=== PATIENT | female | born 1945 | race Caucasian/White ===

== ENCOUNTER → 2017-02-22 | Outpatient (CLI) | payer MEDICARE, BC ==
[~2017-02-22] VITALS: Ht 154.9 cm; Wt 54.7 kg
[~2017-02-22] MED LIST: ADVIL200 MG PO; ANORO IH; B-12 500 MCG PO; CALCIUM 600MG+D1 TAB PO; CALCIUM1 CAP PO; CIPRO 500MG TA500 MG PO; CORGARD 40M40 MG/TAB PO; CORGARD40 MG PO; CYCLOBENZAPRINE10 MG PO; ELITE MAGNESIUM1 TAB PO; ESTRACE0.5 MG PO; ETODOLAC400 MG PO; FLEXERIL 1010 MG/TAB PO; GLUCOSAMINE & C1 CA1 PO; HYZAAR 50-12.1 UDTAB PO; LISINOPRIL PO; LODINE400 MG PO; MAGNESIUM CHELA27 MG PO; MOTRIN 800800 MG/TAB PO; NATURAL POTASS595 MG PO; NIACIN PO; NORFLEX 10100 MG/TAB PO; POTASSIMIN75 MG PO; PREMARIN 0.60.625 MG PO; PRILOSEC; SAM-E200 MG PO; SONATA 10MG10 MG PO; TIZANIDINE PO; VICODIN 5/5001 UDTAB PO; VITAMIN B1250 MCG PO; VITAMIN C500 MG PO; VITAMIN E100 I3 PO; VITAMINE200 PO; ZANAFLEX 4MG TAB4 MG PO
[2017-02-22 12:45] VITALS: BP 136/56; PULSE 58
[2017-02-22 13:35] VITALS: BP 158/75; PULSE 65
[2017-02-22 14:00] VITALS: BP 148/76; PULSE 60
== END ==
LOC: COL.RAD 12:00
DX: D34 Benign neoplasm of thyroid gland (principal)
CPT/HCPCS: 13756

== ENCOUNTER → 2017-11-10 | Outpatient (CLI) | payer MEDICARE, BC | LOC: MC.RAD 09:40 | DX: Z12.31 Encounter for screening mammogram for malignant neoplasm of breast (principal) ==

== ENCOUNTER 2018-03-28 23:20 | Observation (INO) | payer MEDICARE, BC ==
[~2018-03-28] VITALS: Ht 152.4 cm; Wt 59.8 kg
[2018-03-28 23:33] LABS: HEMOGLOBIN 10.4 g/dl (12.5-16.0); MEAN CELL VOLUME 89 fl (80.0-100.0); MEAN CORPUSCULAR HEMOGLOBIN 29 pg (27.0-31.0); MEAN CORPUSCULAR HGB CONC 33 g/dl (33.0-37.0); MEAN PLATELET VOLUME 8.7 fl (7.4-10.4); PLATELET COUNT 194 K/mm3 (130-400); RED BLOOD COUNT 3.56 M/mm3 (4.10-5.30); REDCELL DISTRIBUTION WIDTH-CV 13.2 % (11.5-14.5)
[2018-03-28 23:39] LABS: HEMATOCRIT 31.7 % (37.0-47.0)
[2018-03-28 23:50] LABS: ALANINE AMINOTRANSFERASE 47 U/L (9-52); ALBUMIN 2.7 gm/dL (3.5-5.0); ALKALINE PHOSPHATASE 104 U/L (50-136); ANION GAP 7 mmol/L (7-16); AST,SGOT 32 U/L (15-37); BILIRUBIN,TOTAL 0.6 mg/dL (0.0-1.0); BLOOD UREA NITROGEN 20 mg/dL (7-17); CALCIUM 8.1 mg/dL (8.4-10.2); CARBON DIOXIDE 31 mmol/L (22-30); CHLORIDE 97 mmol/L (98-107); CREATINE KINASE 34 U/L (30-135); CREATININE, serum 1.21 mg/dL (0.52-1.25); GLUCOSE 147 mg/dL (74-106); LIPASE 27 U/L (23-300); POTASSIUM 3.2 mmol/L (3.4-5.0); SODIUM 135 mmol/L (137-145); TOTAL PROTEIN 5.8 gm/dL (6.4-8.2)
[2018-03-28 23:52] LABS: INR 1.3 (0.8-3.0); PROTHROMBIN TIME 14.3 SECONDS (9.7-12.8)
[2018-03-28 23:59] LABS: TROPONIN-I < 0.012 ng/mL (0.000-0.034)
[2018-03-29] VITALS (422 sets, daily range): BP systolic 105–147; BP diastolic 55–97; PULSE 64–99; TEMP 97.4–99.4; O2SAT 90–100
[2018-03-29] LABS: BAND 13 % (0-10); LYMPHOCYTE 11 % (20.0-51.0); NEUTROPHILS 61 % (42.0-75.2)
[2018-03-29 00:01] LABS: PLATELET ESTIMATE NORMAL (NORMAL)
[2018-03-29 00:01] LABS: C-REACTIVE PROTEIN 19.3 mg/dL (0.0-0.9)
[2018-03-29 00:04] LABS: COLLECTION METHOD CATHETER
[2018-03-29 00:12] LABS: HYALINE CAST >12 /lpf; MUCOUS Present /lpf; PH 5 (5-8); SQUAMOUS EPITHELIAL 0-2 /hpf; URINE APPEARANCE Cloudy; URINE BACTERIA Moderate /hpf; URINE BILIRUBIN Positive (NEGATIVE); URINE BLOOD Negative (NEGATIVE); URINE COLOR Yellow; URINE GLUCOSE Negative (NEGATIVE); URINE KETONE Negative (NEGATIVE); URINE LEUKOCYTE ESTERASE Trace (NEGATIVE); URINE NITRATE Negative (NEGATIVE); URINE PROTEIN(semi-quant) 1+ (NEGATIVE); URINE RBC 0-2 /hpf; URINE UROBILINOGEN >=4.0 mg/dL (NEGATIVE)
[2018-03-29 06:01] LABS: HEMOGLOBIN 10.2 g/dl (12.5-16.0); MEAN CELL VOLUME 90 fl (80.0-100.0); MEAN CORPUSCULAR HEMOGLOBIN 29 pg (27.0-31.0); MEAN CORPUSCULAR HGB CONC 33 g/dl (33.0-37.0); MEAN PLATELET VOLUME 9.1 fl (7.4-10.4); PLATELET COUNT 197 K/mm3 (130-400); RED BLOOD COUNT 3.47 M/mm3 (4.10-5.30); REDCELL DISTRIBUTION WIDTH-CV 13.5 % (11.5-14.5)
[2018-03-29 06:07] LABS: HEMATOCRIT 31.1 % (37.0-47.0)
[2018-03-29 06:14] LABS: CALCIUM 8.1 mg/dL (8.4-10.2); CREATININE, serum 0.78 mg/dL (0.52-1.25); MAGNESIUM 1.8 mg/dL (1.6-2.3); POTASSIUM 3.2 mmol/L (3.4-5.0)
[2018-03-29 06:35] LABS: BAND 11 % (0-10); BASOPHIL 1 % (0-2); LYMPHOCYTE 9 % (20.0-51.0); NEUTROPHILS 63 % (42.0-75.2); PLATELET ESTIMATE NORMAL (NORMAL)
[2018-03-30 04:01] VITALS: BP 142/72; PULSE 106; TEMP 99.2
[2018-03-30 06:40] LABS: BASO % 0.1 % (0.0-2.0); EOS # 0.1 (0.0-0.7); EOS % 1.5 % (0-4.0); GRAN # 5.7 (1.4-6.5); GRAN % 69.1 % (42.2-75.2); HEMOGLOBIN 10.3 g/dl (12.5-16.0); LYMPH % 11.8 % (20.0-51.0); MEAN CELL VOLUME 88 fl (80.0-100.0); MEAN CORPUSCULAR HEMOGLOBIN 29 pg (27.0-31.0); MEAN CORPUSCULAR HGB CONC 33 g/dl (33.0-37.0); MEAN PLATELET VOLUME 9.2 fl (7.4-10.4); MONO # 1.4 (0.1-0.6); MONO % 17.1 % (1.7-9.3); PLATELET COUNT 245 K/mm3 (130-400); RED BLOOD COUNT 3.53 M/mm3 (4.10-5.30); REDCELL DISTRIBUTION WIDTH-CV 13.5 % (11.5-14.5)
[2018-03-30 06:42] LABS: HEMATOCRIT 31.1 % (37.0-47.0)
[2018-03-30 06:50] LABS: CALCIUM 8.5 mg/dL (8.4-10.2); CREATININE, serum 0.62 mg/dL (0.52-1.25)
[2018-03-30 08:22] VITALS: BP 122/75; PULSE 85; TEMP 98.3
[2018-03-30] MEDS ORDERED: CEFTIN 250250 MG/TAB PO (09:39)
[2018-03-30] MEDS ORDERED: TOPROL XL 50MG50 MG PO (09:41)
[2018-03-30 12:20] VITALS: BP 124/59; PULSE 85; TEMP 98
== END 2018-03-30 14:00 | disposition home or self-care (01) ==
LOC: COL.ER 23:20 → ICU 03-29 01:02 → MEDICAL 03-29 18:30
PROVIDERS: Emergency Medicine; Internal Medicine; Nurse Practitioner
DX: R41.82 Altered mental status, unspecified (principal); N39.0 Urinary tract infection, site not specified; J44.9 Chronic obstructive pulmonary disease, unspecified; I10 Essential (primary) hypertension; R51 Headache; E87.6 Hypokalemia; I35.1 Nonrheumatic aortic (valve) insufficiency; D64.9 Anemia, unspecified; J32.1 Chronic frontal sinusitis; J32.3 Chronic sphenoidal sinusitis; Z79.52 Long term (current) use of systemic steroids; Z90.710 Acquired absence of both cervix and uterus; Z90.49 Acquired absence of other specified parts of digestive tract; Z88.2 Allergy status to sulfonamides; Z80.42 Family history of malignant neoplasm of prostate; Z80.41 Family history of malignant neoplasm of ovary
CPT/HCPCS: G0378; G8978-GP; G8979-GP; G8987-GO; G8988-GO; J0696; J1650; J7030; Q9967

== ENCOUNTER 2018-05-03 09:45 | Outpatient (RCR) | payer MEDICARE, BC ==
[~2018-05-03 09:45] MED LIST changes: +CEFTIN 250250 MG/TAB PO; +TOPROL XL 50MG50 MG PO
== END 2018-05-04 10:51 | disposition home or self-care (01) ==
LOC: MKS.ESL.PT 09:45
DX: M54.2 Cervicalgia (principal)
CPT/HCPCS: G8979-GP; G8980-GP; G8987-GP; G8988-GP

== ENCOUNTER → 2018-11-30 | Outpatient (CLI) | payer MEDICARE, BC | LOC: COL.RAD 07:49 | DX: M16.11 Unilateral primary osteoarthritis, right hip (principal) | CPT/HCPCS: J3301; Q9967 ==

== ENCOUNTER → 2018-12-05 | Outpatient (CLI) | payer MEDICARE, BC | LOC: MC.RAD 10:33 | DX: Z12.31 Encounter for screening mammogram for malignant neoplasm of breast (principal) ==

== ENCOUNTER → 2019-12-12 | Outpatient (CLI) | payer MEDICARE, BC | LOC: MC.RAD 10:30 | DX: Z12.31 Encounter for screening mammogram for malignant neoplasm of breast (principal) ==

== ENCOUNTER → 2020-12-25 | Outpatient (CLI) | payer MEDICARE, BC | LOC: MC.RAD 12-16 10:00 | DX: Z12.31 Encounter for screening mammogram for malignant neoplasm of breast (principal) ==

== ENCOUNTER → 2021-06-10 | Outpatient (CLI) | payer MEDICARE, BC | LOC: COL.RAD 10:12 | DX: N30.21 Other chronic cystitis with hematuria (principal) ==

== ENCOUNTER → 2022-01-01 | Outpatient (CLI) | payer MEDICARE, BC | LOC: MC.RAD 09:26 | DX: Z12.31 Encounter for screening mammogram for malignant neoplasm of breast (principal) ==

== ENCOUNTER → 2022-05-11 | Outpatient (CLI) | payer MEDICARE, BC | LOC: COL.RAD 09:00 | DX: R13.12 Dysphagia, oropharyngeal phase (principal) ==

== ENCOUNTER 2022-05-19 11:15 | Outpatient (RCR) | payer MEDICARE, BC | END 2022-05-21 | disposition home or self-care (01) | LOC: WSST | DX: R13.12 Dysphagia, oropharyngeal phase (principal) ==

== ENCOUNTER → 2023-02-05 | Outpatient (CLI) | payer MEDICARE, BC | LOC: MC.RAD 02-04 09:00 | DX: Z12.31 Encounter for screening mammogram for malignant neoplasm of breast (principal) ==

== ENCOUNTER → 2024-02-08 | Outpatient (CLI) | payer MEDICARE, BC | LOC: MC.RAD 10:30 | DX: Z12.31 Encounter for screening mammogram for malignant neoplasm of breast (principal) ==